=== PATIENT | male | born 1990 | race Caucasian/White ===

== ENCOUNTER 2016-10-19 13:20 | Emergency (ER) | payer BC ==
[~2016-10-19] VITALS: Ht 180.3 cm; Wt 71.9 kg
[~2016-10-19 13:20] MED LIST: NO HOME MEDICATIONS
[2016-10-19 13:21] VITALS: BP 125/75; PULSE 95; TEMP 98.5
[2016-10-19] MEDS ORDERED: CLEOCIN HCL300 MG PO (14:21)
== END 2016-10-19 14:42 | disposition home or self-care (01) ==
LOC: COL.ER 13:20
DX: L03.113 Cellulitis of right upper limb (principal); Z23 Encounter for immunization